=== PATIENT | female | born 1960 | race Caucasian/White ===

== ENCOUNTER → 2023-09-10 09:07 | Outpatient (REF) | payer BC, SELFPAY | LOC: HWWDC 09:07 | PROVIDERS: ATTENDING PHYSICIAN Obstetrics & Gynecology Gynecology; FAMILY PHYSICIAN Family Medicine | DX: Z12.31 Encounter for screening mammogram for malignant neoplasm of breast (principal) | CPT/HCPCS: 77063; 77067 ==

== ENCOUNTER → 2023-09-12 09:07 | Outpatient (REF) | payer BC, SELFPAY | LOC: HWRAD 09:07 | PROVIDERS: ATTENDING PHYSICIAN Obstetrics & Gynecology Gynecology; FAMILY PHYSICIAN Family Medicine | DX: Z78.0 Asymptomatic menopausal state (principal) | CPT/HCPCS: 77080 ==

== ENCOUNTER → 2023-10-05 06:28 | Day surgery (SDC) | payer BC, SELFPAY | LOC: GI 06:28 | PROVIDERS: ATTENDING PHYSICIAN Internal Medicine Gastroenterology | DX: Z12.11 Encounter for screening for malignant neoplasm of colon (principal); K64.8 Other hemorrhoids; K57.30 Diverticulosis of large intestine without perforation or abscess without bleeding; Z98.0 Intestinal bypass and anastomosis status; Z80.0 Family history of malignant neoplasm of digestive organs | CPT/HCPCS: G0105 ==

== ENCOUNTER 2024-01-23 08:47 | Emergency (ER) | payer BC, SELFPAY ==
[2024-01-23 09:00] VITALS: BP 139/75
[2024-01-23 10:56] LABS: % Basophils 0.7 % (0-2); % Eosinophils 4.7 % (0-6); % Immature Granulocytes 0.3 % (0-0.5); % Lymphocytes 25.9 % (20.5-51.1); % Monocytes 7.6 % (1.7-9.3); % Neutrophils 60.8 % (42.2-75.2); Absolute Basophils 0.1 10^3/uL (0-0.2); Absolute Eosinophils 0.3 10^3/uL (0-0.7); Absolute Lymphocytes 1.9 10^3/uL (1.2-3.4); Absolute Monocytes 0.6 10^3/uL (0.1-0.6); Absolute Neutrophils 4.4 10^3/uL (1.4-6.5); Hematocrit 40.8 % (37.0-47.0); Hemoglobin 13.7 g/dL (12.0-16.0); Mean Corp Hgb Conc. 33.6 g/dL (33.0-37.0); Mean Corpuscular Hgb 30.7 pg (27.0-31.0); Mean Corpuscular Volume 91.5 fL (81.0-99.0); Mean Platelet Volume 9.5 fL (7.4-10.4); Nucleated Red Blood Cells % 0 %; Platelet Count 227 10^3/uL (130-400); Red Blood Cell Count 4.46 10^6/uL (4.20-5.40); Red Cell Dist. Width 12.7 % (11.5-14.5); White Blood Cell Count 7.2 10^3/uL (4.8-10.8)
[2024-01-23 11:09] LABS: ALT (SGPT) 24 U/L (0-35); AST (SGOT) 25 U/L (14-36); Albumin 4.5 g/dl (3.5-5.0); Alkaline Phosphatase 42 U/L (38-126); Blood Urea Nitrogen 25 mg/dl (7-17); Calcium 9.6 mg/dl (8.4-10.2); Carbon Dioxide 27 mmol/L (22-30); Chloride 104 mmol/L (98-107); Glucose 120 mg/dl (70-99); Potassium 4.5 mmol/L (3.5-5.1); Sodium 139 mmol/L (135-145); Total Bilirubin 0.2 mg/dl (0.2-1.3); Total Protein 7.3 g/dl (6.3-8.2); eGFR > 60.00
[2024-01-23 11:40] LABS: Urine Albumin Negative (Neg - Trace); Urine Bilirubin Negative (Negative); Urine Character Clear (Clear); Urine Color Yellow; Urine Glucose Negative (Negative); Urine Ketone Negative (Negative); Urine Leukocyte Negative (Negative); Urine Nitrite Negative (Negative); Urine Occult Blood Negative (Negative); Urine Urobilinogen Negative (Neg - 1+)
--- NOTE | 2024-01-23 13:03 | ED.GENMED ---
History of Present Illness
General
Chief Complaint: Head Injury
Source: patient and spouse
Exam Limitations: none
Time Seen by Provider: 01/23/24 10:09
Nursing documentation reviewed up to this point in time: agreed with
History of Present Illness
History of Present Illness:
63-year-old female presenting to the emergency department today with concerns of an episode where she went to the bathroom in the middle night stood up felt lightheaded fell to the ground her was at the scene no ongoing confusion. He is
able to go back to bed this morning with ongoing headache to the right side where she clearly hit her face likely she claims on a wardrobe. Denies any numbness weakness chest pain shortness of breath no preceding palpitations
Past History
Past History
ED Past Surgical History: Appendectomy (2018) and Bowel resection
Social History
Tobacco: Non-smoker
Alcohol: Occasional
Personal:
Living: with family
Review of Systems
Review of Systems
Allergies reviewed?: Yes
All Other Systems: ROS reviewed and negative except as documented in HPI and ROS
Phy Exam
Physical Exam
Physical Exam:
GENERAL: Alert , in no apparent distress
EYE: pupils equal and reactive normal extraocular movements
NECK: Supple, no significant adenopathy.
ENT: Superficial abrasion to the right forehead right eyebrow region and area just below the eye on the right side no eye involvement o/p clr, mmm.
CARDIAC: Regular rate and rhythm .
LUNGS: Clear breath sounds bilaterally, no acute respiratory distress, no wheezes/rales/rhonchi
ABDOMEN: Soft, without focal tenderness, no r/g, no cvat
NEUROLOGICAL: Alert and oriented, no focal neuro deficits 5 out of 5 upper and lower extremity strength normal sensation when palpating bilaterally normal finger-nose and [id number] walking with steady gait
SKIN: Warm and dry, skin intact.
MUSCULOSKELETAL: No edema, well perfused.
PSYCH: Normal and appropriate interaction.
Course
Orders/Labs/Results
Orders:
Orders
01/23/24 10:11
EKG [Electrocardiogram (*1)] Urgent
Reason for Study: Vertigo / Dizzy
01/23/24 10:12
EKG- Treatment ONCE
01/23/24 10:32
CT Cervical Spine W/o Iv Contr Urgent
Comment:
Reason For Exam: Fall neck pain
CT Facial Bones W/o Iv Contras Urgent
Comment:
Reason For Exam: fell hit face
CT Head W/o Iv Contrast Urgent
Comment:
Reason For Exam: fall hit head blacked out, frontal headache
01/23/24 10:41
CBC/With Diff [Complete Blood Count/With Diff] Urgent
CMP [Comprehensive Metabolic Panel] Urgent
01/23/24 11:12
Urinalysis Reflex To Culture Urgent
Date Specimen was Collected: 01/23/24
Time Specimen was Collected: 11:10
Abnormal Lab Results
01/23/24
10:41
BUN 25 H mg/dl
(7-17)
Glucose 120 H mg/dl
(70-99)
01/23/24 10:41
01/23/24 10:41
Vital Signs
Initial and Last Documented VS:
Initial Vital Signs
Temp Pulse Resp BP Pulse Ox
97.6 F 77 18 139/75 100
01/23/24 09:00 01/23/24 09:00 01/23/24 09:00 01/23/24 09:00 01/23/24 09:00
Last Documented Vital Signs
Temp Pulse Resp BP Pulse Ox
97.6 F 77 18 139/75 100
01/23/24 09:00 01/23/24 09:00 01/23/24 09:00 01/23/24 09:00 01/23/24 09:00
MDM/Problems Addressed
MDM/Problems Addressed:
63-year-old female presenting to the emergency department today with concerns of syncopal episode in the middle the night last night. Also hit the right side of her face. Did blackout. On arrival here patient well-appearing walking steady gait
normal vital signs labs unremarkable other than slightly elevated BUN to creatinine ratio indicating potential mild dehydration. CT scan of the head face and neck without emergent findings EKG normal seems to be consistent with likely vagal
response after using the bathroom otherwise stable for outpatient management return precautions given.
*Critical Care Note
Total Time (30-74mins, 75-104mins- exclusive of procedures): Not Applicable
ED Attending Note
-
Portions of this chart may have been created with voice recognition software.� Occasional wrong word or��sound alike� substitutions may have occurred due to the inherent limitations of voice recognition software.
Discharge Plan
Departure
Patient Disposition: Home (Routine Discharge)
Date of Disposition: 01/23/24
Time of Disposition: 13:03
Patient with high blood pressure during this ER visit?: No
Condition: Good
Covid-19: Not Applicable
Discharge Problem:
Syncope, Facial injury
Instructions: Syncope (fainting)
Prescriptions:
No Action
No Current Medications
0
Referrals:
Martín Rob MD [Family Provider] -
Activity Restrictions/Additional Instructions:
You came to the emergency department today with concerns of passing out earlier in the morning. Here you had a reassuring assessment. You had a normal head face and neck CT. Please stay hydrated at home and rest throughout the remainder of the
day. Return to the emergency department any worsening, new or concerning symptoms.
Interventions
Interventions:
*Risk Screen - Suicide Last Done: 01/23/24 09:00
*General Assessment Last Done: 01/23/24 09:00
*Neglect/Abuse Screening Last Done: 01/23/24 09:00
ED-Musculoskeletal Assessment Last Done: 01/23/24 10:13
ED- Neurological Assessment Last Done: 01/23/24 10:13
ED-Skin Assessment Last Done: 01/23/24 10:13
Discharge Date and Time
Print Language: ZAMBIAN
== END 2024-01-23 13:30 | disposition home or self-care (01) ==
LOC: EMR 08:47
PROVIDERS: Physician Assistant; EMERGENCY PHYSICIAN Student in an Organized Health Care Education/Training Program; FAMILY PHYSICIAN Family Medicine
DX: R55 Syncope and collapse (principal); S00.81XA Abrasion of other part of head, initial encounter; W19.XXXA Unspecified fall, initial encounter
CPT/HCPCS: 99284; 70450; 70486; 72125; 80053; 81003; 85025; 93005

== ENCOUNTER → 2024-10-28 14:18 | Outpatient (REF) | payer BC, SELFPAY | LOC: HWWDC 14:18 | PROVIDERS: ATTENDING PHYSICIAN Obstetrics & Gynecology Gynecology; FAMILY PHYSICIAN Family Medicine | DX: Z12.31 Encounter for screening mammogram for malignant neoplasm of breast (principal) | CPT/HCPCS: 77063; 77067 ==

== ENCOUNTER → 2025-01-13 08:23 | Outpatient (REF) | payer BC, SELFPAY | LOC: WDC 08:23 | PROVIDERS: ATTENDING PHYSICIAN Physician Assistant Medical | DX: M79.89 Other specified soft tissue disorders (principal) | CPT/HCPCS: 76642 ==